=== PATIENT | female | born 1995 | race Caucasian/White ===

== ENCOUNTER → 2019-03-21 17:00 | Observation (INO) ==
[2019-03-21 15:50] LABS: Bilirubin,Urine Negative (Negative); Blood,Urine Negative (Negative); Clarity,Urine Clear (Clear); Color,Urine Yellow (Yellow); Glucose,Urine (UA) Normal (Normal); Ketones,Urine Negative (Negative); Leukocyte Esterase,Urine Negative (Negative); Nitrite,Urine Negative (Negative); Protein,Urine Negative (Neg-Trace); Specific Gravity,Urine 1.015 (1.010-1.025); Urobilinogen,Urine Normal (Normal)
[2019-03-21 15:56] LABS: Basophils % 0.4 %; Eosinophils % 0.2 %; Hematocrit 31.1 % (35.3-44.9); Hemoglobin 9.9 g/dL (11.5-15.4); Immature Granulocytes % 0.5 % (0-4); Lymphocytes # 1.6 K/mcL (0.6-4.6); Lymphocytes % 18.9 %; Mean Corpuscular HGB Conc 31.8 g/dL (31.6-35.5); Mean Corpuscular Hemoglobin 25.7 pg (28.0-33.3); Mean Corpuscular Volume 80.8 fL (83.0-100.0); Mean Platelet Volume 10.4 fL (9.4-12.4); Monocytes # 0.6 K/mcL (0.0-1.3); Monocytes % 7.2 %; Neutrophils # 6.2 K/mcL (1.6-8.9); Platelet Count 259 K/mcL (140-400); Red Blood Count 3.85 M/mcL (3.82-4.97); Red Cell Distribution Width 14.4 % (11.5-14.5); Segmented Neutrophils % 72.8 %; White Blood Count 8.5 K/mcL (4.3-11.1)
[2019-03-21 16:01] LABS: Protein/Creatinine Ratio,Urine 0.09 mg/mg (0.00-0.20)
[2019-03-21 16:11] LABS: Alanine Aminotransferase 9 Units/L (7-52); Aspartate Amino Transferase 10 Units/L (13-39); BUN/Creatinine Ratio 17 (6-26); Blood Urea Nitrogen 11 mg/dL (6-20); Lactate Dehydrogenase 135 Units/L (140-271); Uric Acid 3.9 mg/dL (2.3-7.6); eGFR For African Americans > 60 (> 60); eGFR For Non-African Americans > 60 (> 60)
--- NOTE | 2019-03-21 17:24 | OB/GYN Progress Note ---
Date of Encounter: 03/21/19 Time of Encounter: 17:20 - Assessment and Plan (1) 31 weeks gestation of Status: Acute (2) Anemia affecting in third trimester Status: Acute PIH labs negative, noted with hemoglobin of 9.9. Discharged home with iron prescription sent to pharmacy of choice, labor and when to return to triage precautions also given. Subjective - Subjective Interval history: 31+6 weeks gestation. Presents to triage with complaints of not feeling well, and not like herself. Patient states she has headache today which was r elieved by Tylenol, but has since started to come back once Tylenols worn off, and some dizziness. Patient states she had an episode of blurry vision last night, but it resolved and no blurry vision today. Good movement, denies vaginal bleeding or leaking of fluid. Antepartum ROS: movement normal, no loss of fluid, no vaginal bleeding, no contractions Objective - Vital Signs Vital Signs: Intake and Output 03/21/19 03/21/19 03/21/19 07:59 15:59 23:59 Other: Weight 94.7 kg Patient Weight 03/21/19 23:59 Weight 94.7 kg - Exam FHR: auscultation normal FHR comments: Category 1 tracing Abdomen: Present: soft, gravid - Labs Labs: Abnormal lab results Hgb 9.9 g/dL (11.5-15.4) L 03/21/19 15:10 Hct 31.1 % (35.3-44.9) L 03/21/19 15:10 MCV 80.8 fL (83.0-100.0) L 03/21/19 15:10 MCH 25.7 pg (28.0-33.3) L 03/21/19 15:10 AST 10 Units/L (13-39) L 03/21/19 15:10 Lactate Dehydrogenase 135 Units/L (140-271) L 03/21/19 15:10
== END | disposition home or self-care (01) ==
LOC: 1NENULAB
PROVIDERS: ADMIT Advanced Practice Midwife; ATTEND Advanced Practice Midwife

== ENCOUNTER 2019-05-15 14:33 | Inpatient (IN) ==
[2019-05-15] MEDS ORDERED: Ondansetron 4 MG/2 ML VIAL IVP PRN ×2 (15:23→18:09)
[2019-05-15] MEDS ORDERED: Lidocaine 1% 20 ML MDV INFILT PRN (15:23)
[2019-05-15] MEDS ORDERED: Famotidine 20 MG/2 ML VIAL IVP PRN (15:23)
[2019-05-15] MEDS ORDERED: Metoclopramide 10 MG/2 ML VIAL IVP PRN (15:23)
[2019-05-15] MEDS ORDERED: Naloxone 0.4 MG/ML INJ IVP PRN ×2 (15:23→18:09)
[2019-05-15] MEDS ORDERED: *HR* Nalbuphine 10 MG/ML AMPUL IVP PRN (15:23)
[2019-05-15] MEDS ORDERED: Ringers Solution, Lactated 1,000 ML IVC SCH (15:30)
[2019-05-15 16:01] LABS: Basophils % 0.3 %; Eosinophils % 0.1 %; Hematocrit 33.1 % (35.3-44.9); Hemoglobin 10.6 g/dL (11.5-15.4); Immature Granulocytes % 0.4 % (0-4); Lymphocytes # 1.5 K/mcL (0.6-4.6); Lymphocytes % 15.1 %; Mean Corpuscular Hemoglobin 24.6 pg (28.0-33.3); Mean Corpuscular Volume 76.8 fL (83.0-100.0); Mean Platelet Volume 10.5 fL (9.4-12.4); Monocytes # 0.6 K/mcL (0.0-1.3); Monocytes % 6.3 %; Neutrophils # 7.8 K/mcL (1.6-8.9); Platelet Count 281 K/mcL (140-400); Red Blood Count 4.31 M/mcL (3.82-4.97); Segmented Neutrophils % 77.8 %
[2019-05-15 16:10] LABS: Amphetamine Screen,Urine Negative ng/mL (Cutoff=1000); Barbiturate Screen,Urine Negative ng/mL (Cutoff=200); Benzodiazepines Screen,Urine Negative ng/mL (Cutoff=200); Cannabinoid Screen,Urine Negative ng/mL (Cutoff = 50); Cocaine Screen,Urine Negative ng/mL (Cutoff= 300); Opiate Screen,Urine Negative ng/mL (Cutoff=300); Phencyclidine Screen,Urine Negative ng/mL (Cutoff=25)
--- NOTE | 2019-05-15 17:26 | OB/GYN History & Physical ---
Date of Encounter: 05/15/19 Time of Encounter: 17:20 Assessment and Plan (1) SROM (spontaneous rupture of membranes) Current visit: Yes Status: Acute Admit to L&D for augmentation of labor Start pitocin and increase to adequate contraction pattern Pain management plan is epidural - may have upon request GBS negative - no prophylaxis Labs - CBC and type and screen CEFM Anticipate Dr. Powell is OB rehabilitation clerk and is available as needed (2) Intrauterine Current visit: Yes Status: Acute (3) Type O blood, Rh positive Current visit: Yes Status: Acute (4) with 39 completed weeks gestation Current visit: No Status: Acute History of Present Illness Chief complaint: SROM HPI: Ms. Nicole is a 23 year old female at 39 weeks 5 days gestation with an estimated date of of 05/17/19 dated by ultrasound. She presents with complaint of rupture of membranes at 1330 this afternoon. She denies contractions and vaginal bleeding in endorses good movement. Her has been complicated by a questionable marginal cord insertion as well as a placental Bhatt found on anatomy scan. There are been to follow up a scan since this finding but there is no mention of the marginal cord insertion or the placental [place]. She is followed by Dr. Coats throughout her . records are available electronically and have been reviewed. Labs: O+ GBS- HIV- Hep B- T. Palladium- GC/CL- Rubella immune Varicella immune Past Med Surg Social Fam HX - Past Medical History Medical history: no medical history Additional medical history: OSTEOPENIA. H/O EATING DISORDER. ANEMIA. BLE EDEMA Psychiatric history: anxiety, depression - Past Surgical History Surgical History: cholecystectomy Additional surgical history: 01/26/17 SHILPA BRIAN @[place] W/DR AMOR - Social History Smoking Status: Former smoker Smokeless Tobacco Status: No Alcohol use: none Drug use: none Current living situation: Home - Independent Activity Level: Independent ambulation Recent Out of Country Travel Within the Last 8 Weeks: No Exposure or Possible Exposure to Illness During Travel: No - Family History Mother Living Status: Still Living Hx Family Cardiac Disorders: No Hx Family Respiratory Disorders: No Hx Family Cancer: No Hx Family GI Disorders: No Hx Family Genitourinary Disorders: No Hx Family Endocrine Disorder: No Hx Family Musculoskeletal Disorders: No Hx Family Neuromuscular Disorders: No Hx Family Neurologic Disorders: No Hx Family HEENT Disorders: No Hx Family Autoimmune Disorders: No Hx Family Reproductive Disorders: No Hx Family Psychosocial Disorders: No Hx Family Medical Disorders: No Obstetrical History - Pregnancies : 1 Para: 0 Term: 0 : 0 Ab's: 0 Livin Medications and Allergies Tylenol 650 mg PO Q6HWA 09/03/18 [History] Pepcid 1 / PO DAILY 03/21/19 [History] Vitamin Tablet 1 / PO DAILY 03/21/19 [History] Ferrous Sulfate [Iron] 1 tab PO DAILY 05/11/19 [History] Allergy/AdvReac Type Severity Reaction Status Date / Time No Known Allergies Allergy Verified 09/03/18 10:24 Review of System OB All systems PM: reviewed and no additional remarkable complaints except as stated Exam - Constitutional Constitutional: well developed, well nourished, no acute distress, obese - HEENT HEENT: PERRL, Normocephaly, Mucus Membranes Moist - Neck Neck exam: full ROM - Lungs Respiratory exam: CTAB - Cardiovascular Cardiovascular exam: RRR, +S1, +S2 - Breasts Breast: bilateral: normal - Abdomen Abdomen: Present: bowel sounds normal, gravid, non tender - Extremities Extremities exam: full ROM, normal inspection, radial pulses palpable and symmetrical - Vulva Vulva: bilateral: normal - Cervix Dilation: 2 (per RN) Effacement: 80 Station: -2 - Uterus Uterus exam: Present: normal size Results Result Diagrams: 05/15/19 15:10 Abnormal lab results Hgb 10.6 g/dL (11.5-15.4) L 05/15/19 15:10 Hct 33.1 % (35.3-44.9) L 05/15/19 15:10 MCV 76.8 fL (83.0-100.0) L 05/15/19 15:10 MCH 24.6 pg (28.0-33.3) L 05/15/19 15:10 RDW 15.0 % (11.5-14.5) H 05/15/19 15:10 All other labs normal. - VTE Reasons for not Prescribing Prophylaxis: Treatment not Indicated - Low risk for VTE
[2019-05-15] MEDS ORDERED: Oxytocin 20 units/ LR 1000 mL 20 UNIT/1,000 ML BAG IVC SCH (17:30)
[2019-05-15] MEDS ORDERED: Oxytocin 20 units/ LR 1000 mL 20 UNIT/1,000 ML BAG IVC ONE (17:41)
[2019-05-15] MEDS ORDERED: *HR* FentaNYL (PF) 100 MCG/2 ML VIAL EP ONE (18:09)
[2019-05-15] MEDS ORDERED: Ropivacaine/PF 0.2% 20 ML VIAL EP ONE (18:09)
[2019-05-15] MEDS ORDERED: EPHEDrine 50 MG/ML VIAL IVP PRN (18:09)
[2019-05-15] MEDS ORDERED: Epidural Premix (fent/bupiv) 110 ML EP SCH (18:15)
--- NOTE | 2019-05-15 18:17 | Anesthesia Evaluation PreOp ---
Date of Encounter: 05/15/19 Time of Encounter: 18:11 - Past History Planned Operation: EMILY Cardiac History: Denies any Significant Hx Pulmonary History: Denies Any Significant HX REHAB RN History: Denies Any Significant HX Other Medical History: GERD Anesthesia History: No Prior Anesthetic Complications, Past Anesthesia (history of lap cholecytectomy) : Yes Alcohol Use: none Drug use: none Medications and Allergies Tylenol 650 mg PO Q6HWA 09/03/18 [History] Pepcid 1 / PO DAILY 03/21/19 [History] Vitamin Tablet 1 / PO DAILY 03/21/19 [History] Ferrous Sulfate [Iron] 1 tab PO DAILY 05/11/19 [History] Allergy/AdvReac Type Severity Reaction Status Date / Time No Known Allergies Allergy Verified 09/03/18 10:24 - Meds/Allergy Pre-op Review Medications Reviewed: Yes Allergies Reviewed: Yes Beta Blockers on Current Med List: No Anesthesia Results - Labs 05/15/19 15:10 Anesthesia Exam BP 116/73 P 75 R 16 T 97.7 Height: 5'9" Weight: 95.2kg NPO (# of Hours): 5 Pain Scale: 2 Pain Scale Used: Numeric (1 - 10) - HEENT Pupil (Motor): Pupils equal Mallampati: II Teeth: Normal Oral Opening: Greater than 3 - REHAB RN LOC: Oriented REHAB RN Motor: Normal RUE, Normal LUE, Normal RLE, Normal LLE, Normal Face REHAB RN Sensory: Normal: RUE, LUE, RLE, LLE, Face - Cardiac Rhythm: Regular Murmur: None JVD: No Carotid Bruit: No - Pulmonary Breath Sounds: bilateral Clear Respiratory Effort: Symmetrical Anesthesia Assess/Plan ASA Score: 2 Level of consciousness: Cooperative, Oriented, Tranquil Anesthetic Plan: Epidural Autologous Blood: Yes Monitoring Plan: Standard Monitors Recovery Plan: Other
[2019-05-15] MEDS ORDERED: *HR* Nalbuphine 10 MG/ML AMPUL IV PRN (20:34)
[2019-05-15] MEDS ORDERED: *HR* FentaNYL (PF) 100 MCG/2 ML VIAL ONE (21:18)
[2019-05-15] MEDS ORDERED: Ropivacaine/PF 0.2% 20 ML VIAL ONE (21:18)
--- NOTE | 2019-05-15 23:02 | Anesthesia Procedures ---
Date of Encounter: 05/15/19 Time of Encounter: 21:50 Procedures: Anesthesia - Epidural/Spinal Patient ID/Chart reviewed: Yes Patient examined: Yes OB Eval: Gestational age: 39.5 OB Eval: : 1 OB Eval: Hx Para: 0 OB Eval: Dilated at (cm): 4 OB Eval: Contractions: Non-stressed pattern Consent Obtained: Yes Supplemental Oxygen: None/Room Air Site Prep: Aseptic Technique, Sterile prep and drape, Povidone-Iodine 1% Patient position: upright Local Anesthetic: Lidocaine 1% Amount of Local Anesthetic used: 3 Touhy Needle Gauge: 18 Touhy Needle Depth (cm): 6 Catheter Depth at Skin (cm): 14 Test Dose (1.5% Lido + Epi): Volume given (mls): 3 Test Dose Result: Negative Loading Dose: Fentanyl (mcg): 100 Loading Dose: Other: Ropivicaine 0.2% 5ml, 3ml Normal saline Loading Dose Administered: Thru Catheter Infusion Med: 0.125% Bupivacaine w/ 2 mcg/ml Fentanyl Infusion Rate (mls/hr): [address]: Tegaderm, Tape Interspace Used: L3-L4 Loss of Resistance (ANUJA): Yes Blood: No CSF: No Paresthesia: No Procedure: EMILY placed 1st pass in upright position. ANUJA achieved with normal saline. Catheter threaded with ease to 14 cm at the skin. Test dose negative. Pt stated comfort following epidural bolus administration. VSS throughout. Vitals + FHT's: 2150 BP 16179 P 108 R 20 2213 BP 132/83 P 73 R 16
--- NOTE | 2019-05-15 23:24 | OB/GYN Procedure Note ---
Delivery - Delivery Date: 05/15/19 Provider: Vickie Mckeon Intrapartum events: none Delivery induction: none Delivery augmentation: pitocin Delivery monitor: external FHT, external uterine Anesthesia: epidural Quantitated Blood Loss: 200 - (s) A Infant Delivery Date: 05/15/19 Delivery Time: 22:57 Presentation: vertex Position: ROP Route of delivery: Gender: Female Viability: Viable Pounds: 7 Ounces: 0 Weight Gram: 3.165 kg at 1 minute: 8 at 5 mins: 9 Shoulder Dystocia: not encountered Specimens collected: cord blood Placenta: spontaneous Cord: 3 umbilical vessels - Repair Episiotomy: none Laceration Description: Perineal - 2nd Degree - Complications Delivery complications: none Delivery comments: This is a 23 year old G1 now P1001 who was admitted for spontaneous rupture of membranes. She progressed with Pitocin augmentation to the second stage of labor. She pushed for about 15 minutes. She delivered a viable, female , ROP with a compound presentation of the hand over a second-degree laceration. A nuchal cord was not identified. A shoulder dystocia was not encountered. The was placed on the maternal abdomen and allowed to transition spontaneously. The cord was double clamped by public relations representative after pulsations ceased and cut by FOB. scores were 8 at 1 minute and 9 at 5 minutes. The weighed 7lbs 0oz (3160g). The placenta delivered spontaneously, intact (Bertrand) with a 3-vessel cord. Inspection revealed a second-degree laceration and bilateral labial lacerations. The secondary was repaired with 3-0 Monocryl and the bilateral labial lacerations were left as they were hemostatic. The uterus was firm with no active bleeding. EBL was 200mL. Placenta and umbilical artery blood gases were not sent. There were no complications during the procedure. Mom and baby are skin to skin following delivery. - Disposition Mom disposition: stable in LDR [place] disposition: stable in LDR
[2019-05-16] MEDS ORDERED: Rho Immune Globulin 1,500 UNIT SYRINGE IM PRN (02:05)
[2019-05-16] MEDS ORDERED: Lanolin 7 G OINT...G. TP PRN (02:05)
[2019-05-16] MEDS ORDERED: Measles/Mumps/Rubella Vacc 0.5 ML VIAL SQ PRN (02:05)
[2019-05-16] MEDS ORDERED: Benzocaine/Menthol 56 GM AEROSOL SPRAY TP PRN (02:05)
[2019-05-16] MEDS ORDERED: Oxytocin 20 units/ LR 1000 mL 20 UNIT/1,000 ML BAG IVC SCH (02:05)
[2019-05-16] MEDS: Acetaminophen 325 MG TABLET PO PRN ×2 (02:14→08:15)
[2019-05-16 06:21] LABS: Basophils % 0.1 %; Hematocrit 28.4 % (35.3-44.9); Hemoglobin 9.1 g/dL (11.5-15.4); Immature Granulocytes % 0.4 % (0-4); Lymphocytes % 13.7 %; Mean Corpuscular Hemoglobin 24.4 pg (28.0-33.3); Mean Corpuscular Volume 76.1 fL (83.0-100.0); Mean Platelet Volume 10.3 fL (9.4-12.4); Neutrophils # 11.6 K/mcL (1.6-8.9); Platelet Count 210 K/mcL (140-400); Red Blood Count 3.73 M/mcL (3.82-4.97); Red Cell Distribution Width 14.9 % (11.5-14.5); Segmented Neutrophils % 78.8 %; White Blood Count 14.7 K/mcL (4.3-11.1)
[2019-05-16] MEDS: Prenatal Vit/FA 1 EACH TABLET PO SCH (07:54)
--- NOTE | 2019-05-16 10:56 | Discharge Summary ---
Date of Encounter: 05/16/19 Time of Encounter: 10:53 - Discharge Diagnosis (1) Vaginal delivery Priority: Primary Status: Acute Comments: S/P Vaginal Delivery Day 1. VSS Pain is well controlled Lochia is light and without clots Tolerating regular diet, passing flatus Voiding without difficulty Breast feeding Discharge home today POC per consult with Dr Salinas - Discharge Medications Prescriptions: New Breast Pump [BREAST PUMP] 1 each .ROUTE AD #1 each Docusate [Colace] 100 mg PO BID #30 capsule Benzocaine/Menthol [place] [Dermoplast [place]] 1 appl TP QID PRN aerosol PRN Reason: See Comments Ferrous Sulfate 325 mg PO BIDWM #180 tablet Lanolin [Lansinoh] 1 appl TP QID PRN oint...g. PRN Reason: Acetaminophen [Tylenol] 650 mg PO Q6HR PRN tablet PRN Reason: Mild Pain Continued Tylenol 650 mg PO Q6HWA Vitamin Tablet 1 / PO DAILY Pepcid 1 / PO DAILY Discontinued Ferrous Sulfate [Iron] 1 tab PO DAILY Home Medications: Tylenol 650 mg PO Q6HWA 09/03/18 [History] Pepcid 1 / PO DAILY 03/21/19 [History] Vitamin Tablet 1 / PO DAILY 03/21/19 [History] Acetaminophen [Tylenol] 650 mg PO Q6HR PRN tablet 05/16/19 [Rx] Benzocaine/Menthol [place] [Dermoplast [place]] 1 appl TP QID PRN aerosol 05/16/19 [Rx] Breast Pump [BREAST PUMP] 1 each .ROUTE AD #1 each 05/16/19 [Rx] Docusate [Colace] 100 mg PO BID #30 capsule 05/16/19 [Rx] Ferrous Sulfate 325 mg PO BIDWM #180 tablet 05/16/19 [Rx] Lanolin [Lansinoh] 1 appl TP QID PRN oint...g. 05/16/19 [Rx] Allergies/Adverse Reactions: Allergy/AdvReac Type Severity Reaction Status Date / Time No Known Allergies Allergy Verified 09/03/18 10:24 Data Procedures and tests throughout hospitalization: Laboratory Tests 05/15/19 05/15/19 05/16/19 15:10 15:39 06:06 WBC 10.0 14.7 H RBC 4.31 3.73 L Hgb 10.6 L 9.1 L D Hct 33.1 L 28.4 L MCV 76.8 L 76.1 L MCH 24.6 L 24.4 L MCHC 32.0 32.0 RDW 15.0 H 14.9 H Plt Count 281 210 MPV 10.5 10.3 Immature Gran % 0.4 0.4 Seg Neutrophils % 77.8 78.8 Lymphocytes % 15.1 13.7 Monocytes % 6.3 7.0 Eosinophils % 0.1 0.0 Basophils % 0.3 0.1 Neutrophils # 7.8 11.6 H Lymphocytes # 1.5 2.0 Monocytes # 0.6 1.0 Eosinophils # 0.0 0.0 Basophils # 0.0 0.0 Urine Opiates Screen Negative Ur Buprenorphine Scrn Negative Ur Barbiturates Screen Negative Ur Phencyclidine Scrn Negative Ur Amphetamines Screen Negative U Benzodiazepines Scrn Negative Urine Cocaine Screen Negative U Marijuana (THC) Screen Negative Ur Drug Screen Interp See Below Labs on day of discharge: Labs from last 24 hours 05/16/19 05/15/19 05/15/19 06:06 15:39 15:10 WBC 14.7 H 10.0 RBC 3.73 L 4.31 Hgb 9.1 L D 10.6 L Hct 28.4 L 33.1 L MCV 76.1 L 76.8 L MCH 24.4 L 24.6 L MCHC 32.0 32.0 RDW 14.9 H 15.0 H Plt Count 210 281 MPV 10.3 10.5 Immature Gran % 0.4 0.4 Seg Neutrophils % 78.8 77.8 Lymphocytes % 13.7 15.1 Monocytes % 7.0 6.3 Eosinophils % 0.0 0.1 Basophils % 0.1 0.3 Neutrophils # 11.6 H 7.8 Lymphocytes # 2.0 1.5 Monocytes # 1.0 0.6 Eosinophils # 0.0 0.0 Basophils # 0.0 0.0 Urine Opiates Screen Negative Ur Buprenorphine Scrn Negative Ur Barbiturates Screen Negative Ur Phencyclidine Scrn Negative Ur Amphetamines Screen Negative U Benzodiazepines Scrn Negative Urine Cocaine Screen Negative U Marijuana (THC) Screen Negative Ur Drug Screen Interp See Below Date of admission: 05/15/19 14:33 Primary care physician: Stacy Baker CNP Consults: 05/16/19 02:05 Consult to Dietary Clerk [CONS] Routine Comment: Vaginal delivery, consult needed Discharging clinician: Vickie Matthews Anticipated date of discharge: 05/16/19 - Patient Status Disposition: Home, Self-Care Condition: Good Functional capacity at discharge: independent ambulation Overall status at discharge: patient is progressing back to baseline - Discharge Instructions Follow Up With: Stacy Baker, DIPPER MACHINE OPERATOR [Primary Care Provider] - Neelam Coats DO [Partnered Physician] - - Diet and Activity Activity: increase activity as tolerated Diet: regular diet Hospital Course Reason for admission: IUP at term Delivery: Episiotomy: none Laceration: none Other procedures: none complications: none Discharge diagnosis: IUP at term delivered baby: female Time Attestation: Total time spent providing and/or coordinating discharge services: Time Spent: Less than 30 minutes Exam - Constitutional Vitals: Temp Pulse Resp BP Pulse Ox 98.1 F 66 16 108/66 98 05/16/19 07:47 05/16/19 07:47 05/16/19 07:47 05/16/19 07:47 05/16/19 04:00 General appearance IM: cooperative, A&O X 3, pleasant - Respiratory Respiratory exam: Present: CTAB - Cardiovascular Cardiovascular exam IM: Present: RRR, +S1, +S2 - GI/Abdominal GI/Abdominal exam IM: normal bowel sounds, soft - Uterine Tone: Firm Uterus Position: 2 Fingers Below Umbilicus, Midline - Extremities Exam Extremities exam IM: Present: normal capillary refill, normal inspection, radial pulses palpable and symmetrical - Neurological Exam Neurological exam: alert, oriented X3, reflexes normal
[2019-05-16] MEDS: Ibuprofen 600 MG TABLET PO PRN ×2 (12:54→19:49)
[2019-05-16] MEDS: Famotidine 20 MG TABLET PO SCH ×2 (13:13→21:25)
[2019-05-17] MEDS: Acetaminophen 325 MG TABLET PO PRN (00:45)
[2019-05-17] MEDS: Ibuprofen 600 MG TABLET PO PRN (05:31)
[2019-05-17 07:46] VITALS: BP 110/65
--- NOTE | 2019-05-17 08:13 | Discharge Summary ---
Date of Encounter: 05/17/19 Time of Encounter: 08:10 - Discharge Diagnosis (1) Anemia, Priority: Secondary Status: Acute Comments: continue ferrous sulfate daily (2) Breast feeding status of mother Priority: Secondary Status: Acute Comments: support prn (3) Vaginal delivery Priority: Primary Status: Acute Comments: Continue routine care discharge home today follow up with Dr. Coats in 4-6 weeks gestation - Discharge Medications Prescriptions: New Breast Pump [BREAST PUMP] 1 each .ROUTE AD #1 each Docusate [Colace] 100 mg PO BID #30 capsule Benzocaine/Menthol [place] [Dermoplast [place]] 1 appl TP QID PRN aerosol PRN Reason: See Comments Ferrous Sulfate 325 mg PO BIDWM #180 tablet Lanolin [Lansinoh] 1 appl TP QID PRN oint...g. PRN Reason: Acetaminophen [Tylenol] 650 mg PO Q6HR PRN tablet PRN Reason: Mild Pain Continued Tylenol 650 mg PO Q6HWA Vitamin Tablet 1 / PO DAILY Pepcid 1 / PO DAILY Discontinued Ferrous Sulfate [Iron] 1 tab PO DAILY Home Medications: Tylenol 650 mg PO Q6HWA 09/03/18 [History] Pepcid 1 / PO DAILY 03/21/19 [History] Vitamin Tablet 1 / PO DAILY 03/21/19 [History] Acetaminophen [Tylenol] 650 mg PO Q6HR PRN tablet 05/16/19 [Rx] Benzocaine/Menthol [place] [Dermoplast [place]] 1 appl TP QID PRN aerosol 05/16/19 [Rx] Breast Pump [BREAST PUMP] 1 each .ROUTE AD #1 each 05/16/19 [Rx] Docusate [Colace] 100 mg PO BID #30 capsule 05/16/19 [Rx] Ferrous Sulfate 325 mg PO BIDWM #180 tablet 05/16/19 [Rx] Lanolin [Lansinoh] 1 appl TP QID PRN oint...g. 05/16/19 [Rx] Ibuprofen [Motrin] 600 mg PO Q6HR PRN #60 tab 05/17/19 [Rx] Allergies/Adverse Reactions: Allergy/AdvReac Type Severity Reaction Status Date / Time No Known Allergies Allergy Verified 09/03/18 10:24 Data Procedures and tests throughout hospitalization: Laboratory Tests 05/15/19 05/15/1919 15:10 15:39 06:06 WBC 10.0 14.7 H RBC 4.31 3.73 L Hgb 10.6 L 9.1 L D Hct 33.1 L 28.4 L MCV 76.8 L 76.1 L MCH 24.6 L 24.4 L MCHC 32.0 32.0 RDW 15.0 H 14.9 H Plt Count 281 210 MPV 10.5 10.3 Immature Gran % 0.4 0.4 Seg Neutrophils % 77.8 78.8 Lymphocytes % 15.1 13.7 Monocytes % 6.3 7.0 Eosinophils % 0.1 0.0 Basophils % 0.3 0.1 Neutrophils # 7.8 11.6 H Lymphocytes # 1.5 2.0 Monocytes # 0.6 1.0 Eosinophils # 0.0 0.0 Basophils # 0.0 0.0 Urine Opiates Screen Negative Ur Buprenorphine Scrn Negative Ur Barbiturates Screen Negative Ur Phencyclidine Scrn Negative Ur Amphetamines Screen Negative U Benzodiazepines Scrn Negative Urine Cocaine Screen Negative U Marijuana (THC) Screen Negative Ur Drug Screen Interp See Below Date of admission: 05/15/19 14:33 Primary care physician: Stacy Baker CNP Consults: 05/16/19 02:05 Consult to Snuff Blender [CONS] Routine Comment: Vaginal delivery, consult needed Discharging clinician: Heaven Whitley Anticipated date of discharge: 05/17/19 - Patient Status Disposition: Home, Self-Care Condition: Good Functional capacity at discharge: independent ambulation - Discharge Instructions Follow Up With: Stacy Baker CNP [Primary Care Provider] - Neelam Coats DO [Partnered Physician] - - Diet and Activity Activity: increase activity as tolerated Diet: regular diet Hospital Course Reason for admission: active labor, ROM Delivery: Episiotomy: none Laceration: 2nd degree Other procedures: none complications: none Discharge diagnosis: IUP at term delivered [place] baby: female (breast feeding) Time Attestation: Total time spent providing and/or coordinating discharge services: Time Spent: Less than 30 minutes Exam - Constitutional Vitals: Temp Pulse Resp BP Pulse Ox 97.9 F 69 20 110/65 98 05/17/19 07:45 05/17/19 07:45 05/17/19 07:45 05/17/19 07:45 05/17/19 07:45 General appearance IM: cooperative, A&O X 3, pleasant - Respiratory Respiratory exam: Present: CTAB - Cardiovascular Cardiovascular exam IM: Present: RRR, +S1, +S2 - GI/Abdominal GI/Abdominal exam IM: normal bowel sounds - Uterine Tone: Firm Uterus Position: 1 Finger Below Umbilicus, Midline - Extremities Exam Extremities exam IM: Present: full ROM, normal capillary refill, normal inspection - Neurological Exam Neurological exam: alert, oriented X3, reflexes normal
[2019-05-17] MEDS ORDERED: FLU Vac QV 19-20 (6Month+)/PF 0.5 ML SYRINGE IM ONE (08:45)
[2019-05-17] MEDS: Famotidine 20 MG TABLET PO SCH (09:42)
[2019-05-17] MEDS: Prenatal Vit/FA 1 EACH TABLET PO SCH (09:42)
== END 2019-05-17 12:00 | disposition home or self-care (01) | DRG 560 ==
LOC: 1NENULAB → OBSVTOIN 14:33 → 1NENULAB 20:16 → 1NENUOBS 05-16 02:10
PROVIDERS: ADMIT Advanced Practice Midwife; ATTEND Advanced Practice Midwife